=== PATIENT | male | born 2000 | race Two or more races ===

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

== ENCOUNTER 2022-04-05 14:15 | Inpatient (IN) | payer MEDICAID, OTHER ==
[~2022-04-05] VITALS: Ht 175.3 cm; Wt 117.2 kg
[~2022-04-05 14:15] MED LIST changes: +CIPR-173 PO; -INSLANTI; +INSLANTI SC; -INSLISPI; +INSLISPI SC; +METR500T PO; +ONDA-144 PO
[2022-04-05 14:53] LABS: Urine Bacteria NONE SEEN /hpf (None Seen); Urine Blood Negative /uL (Negative); Urine WBC <1 /hpf (0 - 3)
[2022-04-05 15:19] LABS: Basophils # (auto) 0.1 10 ^3/uL (0-0.2); Basophils % (auto) 0.6 % (0.0-2.0); Eosinophils # (auto) 0.4 10 ^3/uL (0-0.8); Eosinophils % (auto) 3.9 % (0.0-7.0); Hematocrit 47.2 % (41.0-53.0); Hemoglobin 15.6 g/dL (13.5-17.5); Lymphocytes # (auto) 2.6 10 ^3/uL (0.4-5.4); Lymphocytes % (auto) 23.1 % (10.0-50.0); Mean Corpuscular Hemoglobin 26.7 pg (28.0-32.0); Mean Corpuscular Hgb Conc. 33.1 g/dL (32.0-36.0); Mean Corpuscular Volume 80.8 fL (80.0-100.0); Monocytes # (auto) 0.9 10 ^3/uL (0-1.3); Monocytes % (auto) 8.3 % (0.0-12.0); Neutrophils # (auto) 7.3 10 ^3/uL (1.6-8.6); Neutrophils % (auto) 64.1 % (37.0-80.0); Red Blood Cells 5.85 10^6/uL (4.5-5.90); Red Cell Distribution Width 12.7 % (11.8-14.3); White Blood Cell 11.4 10^3/uL (4.4-10.8)
[2022-04-05 15:45] LABS: Albumin 3.6 g/dL (3.4-5.0); BUN/Creatinine Ratio 14.3; Calcium 9.2 mg/dL (8.5-10.1); Potassium 4.3 mmol/L (3.5-5.1)
[2022-04-05 15:48] LABS: Bilirubin, Total 0.4 mg/dL (0.2-1.0)
[2022-04-05] MEDS ORDERED: ceFAZolin 1GM/50ML 50 ML IV ONE (16:00)
[2022-04-05] MEDS ORDERED: SODIUM CHLORIDE 0.9% 1,000 ML IV ONE ×2 (16:00)
[2022-04-05] MEDS ORDERED: metroNIDAZOLE 500MG/100ML 100 ML IV ONE (16:00)
[2022-04-05 17:31] LABS: INR 0.93 (0.9-1.15); Partial Thromboplastin Time 27.2 sec (24.6-33.4)
[2022-04-05] MEDS ORDERED: DEXTROSE (50%) 50ML SYRG IV PRN (19:15)
[2022-04-05] MEDS ORDERED: MORPHINE SULFATE INJ 2 MG/ml SYRG IV PRN (19:15)
[2022-04-05] MEDS ORDERED: NITROGLYCERIN 0.4 MG SL TAB SL PRN (19:15)
[2022-04-05] MEDS: SODIUM CHLORIDE 0.9% 1,000 ML IV SCH (19:15)
[2022-04-05] MEDS ORDERED: ONDANSETRON HCL 4 MG/2 ML VIAL IV PRN (19:15)
[2022-04-05 19:42] LABS: Cholesterol 197 mg/dL (< 200)
[2022-04-05 19:45] LABS: HDL Cholesterol 51 mg/dL (40-59); LDL Cholesterol 143 mg/dL (< 100); Triglycerides 272 mg/dL (< 150)
[2022-04-05] MEDS ORDERED: metroNIDAZOLE 500MG/100ML 100 ML IV SCH (22:00)
[2022-04-05 22:30] VITALS: BP 120/69
[2022-04-05 22:32] VITALS: BP 120/69
[2022-04-05] MEDS ORDERED: ATOR20TA50 PO (22:36)
[2022-04-05] MEDS ORDERED: [UNRECOGNIZED DRUG - CODE] PO (22:36)
[2022-04-05] MEDS: MORPHINE SULFATE INJ 2 MG/ml SYRG IV PRN (22:58)
[2022-04-05] MEDS: ACCU-CHEK COMFORT CURVE STRIP VI SCH (23:36)
[2022-04-05] MEDS: InsuLIN REG 1unit/0.01ml Soln (100units/ml) SC SCH (23:36)
[2022-04-06] MEDS: metroNIDAZOLE 500MG/100ML 100 ML IV SCH ×3 (03:12→17:43)
[2022-04-06 05:00] VITALS: BP 115/69
[2022-04-06] MEDS: SODIUM CHLORIDE 0.9% 1,000 ML IV SCH ×2 (05:04→14:41)
[2022-04-06] MEDS: ACCU-CHEK COMFORT CURVE STRIP VI SCH ×3 (05:07→17:38)
[2022-04-06] MEDS: InsuLIN REG 1unit/0.01ml Soln (100units/ml) SC SCH ×3 (05:34→16:06)
[2022-04-06 06:02] LABS: Basophils # (auto) 0.1 10 ^3/uL (0-0.2); Eosinophils # (auto) 0.5 10 ^3/uL (0-0.8); Hemoglobin 13.9 g/dL (13.5-17.5); Lymphocytes # (auto) 2.7 10 ^3/uL (0.4-5.4); Monocytes # (auto) 0.7 10 ^3/uL (0-1.3); Neutrophils # (auto) 6.6 10 ^3/uL (1.6-8.6); Red Cell Distribution Width 12.5 % (11.8-14.3); White Blood Cell 10.6 10^3/uL (4.4-10.8)
[2022-04-06 06:03] LABS: Basophils % (auto) 0.6 % (0.0-2.0); Eosinophils % (auto) 4.6 % (0.0-7.0); Hematocrit 41.8 % (41.0-53.0); Lymphocytes % (auto) 25.8 % (10.0-50.0); Mean Corpuscular Hemoglobin 27.1 pg (28.0-32.0); Mean Corpuscular Hgb Conc. 33.2 g/dL (32.0-36.0); Mean Corpuscular Volume 81.6 fL (80.0-100.0); Monocytes % (auto) 6.8 % (0.0-12.0); Neutrophils % (auto) 62.2 % (37.0-80.0); Red Blood Cells 5.12 10^6/uL (4.5-5.90)
[2022-04-06 06:40] LABS: Albumin 2.9 g/dL (3.4-5.0); BUN/Creatinine Ratio 21.2; Bilirubin, Total 0.8 mg/dL (0.2-1.0); Calcium 8.9 mg/dL (8.5-10.1); Total Protein 6.6 g/dL (6.4-8.2)
[2022-04-06] MEDS ORDERED: InsuLIN REG 1unit/0.01ml Soln (100units/ml) SC ONE ×2 (08:45→09:45)
[2022-04-06] MEDS ORDERED: MEPERIDINE HCL (50 MG/ML) 1 ML VIAL ONE (08:58)
[2022-04-06] MEDS ORDERED: fentaNYL CITRATE 100 MCG/2 ML VL ONE (08:58)
[2022-04-06] MEDS ORDERED: MIDAZOLAM HCL 2MG/2ML 2ml VIAL (1mg/ml) ONE (08:58)
[2022-04-06 09:00] VITALS: BP 108/71
[2022-04-06] MEDS: cefTRIAXone 1GM/50ML D5W 50 ML IV SCH ×2 (09:00→09:52)
[2022-04-06] MEDS ORDERED: InsuLIN REG 1unit/0.01ml Soln (100units/ml) IV ONE (09:45)
[2022-04-06] MEDS ORDERED: SUCCINYLCHOLINE CHLORIDE 20 MG/ML 10ML VIAL IV ONE (09:45)
[2022-04-06] MEDS ORDERED: BUPIVACAINE 0.25% INJ 50ML VIAL ONE (09:49)
[2022-04-06] MEDS ORDERED: PROPOFOL 10 MG/ML 20 ML IV ONE (10:06)
[2022-04-06] MEDS ORDERED: DexAMETHasone SOD PHOS 10MG/1ML VIAL INJ ONE (10:06)
[2022-04-06] MEDS ORDERED: ROCURONIUM 10MG/ML 10ML VIAL IV ONE (10:06)
[2022-04-06] MEDS ORDERED: hydrALAZINE HCL 20 MG/ML VL IV PRN (10:30)
[2022-04-06] MEDS ORDERED: ACCU-CHEK COMFORT CURVE STRIP VI ONE (10:30)
[2022-04-06] MEDS ORDERED: ePHEDrine SULFATE 50 MG/ML AMP IV PRN (10:30)
[2022-04-06] MEDS ORDERED: MIDAZOLAM HCL 2MG/2ML 2ml VIAL (1mg/ml) IV PRN (10:30)
[2022-04-06] MEDS ORDERED: ONDANSETRON HCL 4 MG/2 ML VIAL IV PRN (10:30)
[2022-04-06] MEDS ORDERED: LABETALOL HCL 5 MG/ML 4ML SYRINGE IV PRN (10:30)
[2022-04-06] MEDS ORDERED: MORPHINE SULFATE 4 MG/ML SYR/VIAL IV PRN (10:30)
[2022-04-06] MEDS ORDERED: SUGAMMADEX 200mg/2ml Vial (100MG/ML) IV ONE (11:00)
[2022-04-06] MEDS: HYDROmorphone HCL 2 MG/ML VL/or syr IV PRN ×4 (11:25→11:55)
[2022-04-06] MEDS ORDERED: IPRATROPIUM BROM 0.5 MG/2.5ML INH SOL NEB ONE (11:40)
[2022-04-06 13:00] VITALS: BP 134/77
[2022-04-06] MEDS: MORPHINE SULFATE INJ 2 MG/ml SYRG IV PRN ×3 (13:44→22:40)
[2022-04-06] MEDS: ONDANSETRON HCL 4 MG/2 ML VIAL IV PRN ×2 (13:46→18:37)
[2022-04-06] MEDS: IBUPROFEN 400 MG TAB PO SCH ×2 (16:06→21:37)
[2022-04-06 17:00] VITALS: BP 114/73
[2022-04-06] MEDS ORDERED: IBUPROFEN 600 MG TAB PO SCH (22:00)
[2022-04-06 22:09] VITALS: BP 125/82
[2022-04-07] MEDS: InsuLIN REG 1unit/0.01ml Soln (100units/ml) SC SCH ×5 (00:02→23:25)
[2022-04-07] MEDS: ACCU-CHEK COMFORT CURVE STRIP VI SCH ×5 (00:11→23:54)
[2022-04-07] MEDS: SODIUM CHLORIDE 0.9% 1,000 ML IV SCH ×4 (01:15→22:16)
[2022-04-07] MEDS: MORPHINE SULFATE INJ 2 MG/ml SYRG IV PRN ×5 (02:57→23:26)
[2022-04-07] MEDS: ONDANSETRON HCL 4 MG/2 ML VIAL IV PRN ×4 (02:58→19:45)
[2022-04-07] MEDS: metroNIDAZOLE 500MG/100ML 100 ML IV SCH ×3 (03:03→19:45)
[2022-04-07 04:56] VITALS: BP 138/74
[2022-04-07] MEDS: IBUPROFEN 400 MG TAB PO SCH ×3 (05:32→21:43)
[2022-04-07 08:30] VITALS: BP 145/85
[2022-04-07] MEDS: cefTRIAXone 1GM/50ML D5W 50 ML IV SCH (09:20)
[2022-04-07] MEDS: PANTOPRAZOLE 40 MG/10 ML VIAL INJ IV SCH (10:15)
[2022-04-07 10:20] LABS: Basophils # (auto) 0.1 10 ^3/uL (0-0.2); Hematocrit 47.3 % (41.0-53.0)
[2022-04-07 10:22] LABS: Basophils % (auto) 0.4 % (0.0-2.0); Eosinophils # (auto) 0.1 10 ^3/uL (0-0.8); Eosinophils % (auto) 0.2 % (0.0-7.0); Hemoglobin 14.9 g/dL (13.5-17.5); Lymphocytes # (auto) 2.4 10 ^3/uL (0.4-5.4); Lymphocytes % (auto) 10.4 % (10.0-50.0); Mean Corpuscular Hemoglobin 27.1 pg (28.0-32.0); Mean Corpuscular Hgb Conc. 31.6 g/dL (32.0-36.0); Mean Corpuscular Volume 85.8 fL (80.0-100.0); Monocytes # (auto) 2.1 10 ^3/uL (0-1.3); Neutrophils # (auto) 18.5 10 ^3/uL (1.6-8.6); Red Blood Cells 5.52 10^6/uL (4.5-5.90); Red Cell Distribution Width 13.1 % (11.8-14.3); White Blood Cell 23.2 10^3/uL (4.4-10.8)
[2022-04-07 10:40] LABS: BUN/Creatinine Ratio 8.1; Calcium 9.3 mg/dL (8.5-10.1); Potassium 4.4 mmol/L (3.5-5.1)
[2022-04-07 13:07] VITALS: BP 138/80
[2022-04-07 17:17] VITALS: BP 135/80
[2022-04-07 22:00] VITALS: BP 127/66
[2022-04-08] VITALS (27 sets, daily range): BP systolic 114–158; BP diastolic 64–93
[2022-04-08] MEDS: ONDANSETRON HCL 4 MG/2 ML VIAL IV PRN ×2 (00:09→06:53)
[2022-04-08] MEDS: HYDROcodone-ACET 5/325MG TAB PO PRN ×3 (00:39→22:46)
[2022-04-08] MEDS: metroNIDAZOLE 500MG/100ML 100 ML IV SCH ×3 (02:54→18:12)
[2022-04-08] MEDS: ACCU-CHEK COMFORT CURVE STRIP VI SCH ×11 (05:52→22:32)
[2022-04-08] MEDS: IBUPROFEN 400 MG TAB PO SCH (05:52)
[2022-04-08] MEDS: InsuLIN REG 1unit/0.01ml Soln (100units/ml) SC SCH (05:55)
[2022-04-08] MEDS: SODIUM CHLORIDE 0.9% 1,000 ML IV SCH ×3 (08:50→21:42)
[2022-04-08] MEDS ORDERED: DEXTROSE (50%) 50ML SYRG IV PRN (08:50)
[2022-04-08] MEDS ORDERED: INSULIN LANTUS (GLARGINE) 1 /0.01ml (100units/ml) SC ONE (08:50)
[2022-04-08] MEDS ORDERED: SODIUM BICARBONATE 8.4 % INJ 50ML VIAL IV ONE (08:50)
[2022-04-08] MEDS ORDERED: InsuLIN R (HUMAN) 100 UNITS in SODIUM CHL 0.9% 99 ML IV SCH (08:50)
[2022-04-08] MEDS ORDERED: InsuLIN REG 1unit/0.01ml Soln (100units/ml) IV ONE (08:50)
[2022-04-08] MEDS ORDERED: SODIUM CHLORIDE 0.9% 2,000 ML IV ONE (08:50)
[2022-04-08 09:05] LABS: Eosinophils # (auto) 0 10 ^3/uL (0-0.8); Monocytes # (auto) 1.1 10 ^3/uL (0-1.3); Neutrophils # (auto) 10.3 10 ^3/uL (1.6-8.6)
[2022-04-08 09:07] LABS: Basophils # (auto) 0.2 10 ^3/uL (0-0.2); Basophils % (auto) 1.5 % (0.0-2.0); Hematocrit 43.8 % (41.0-53.0); Hemoglobin 14.1 g/dL (13.5-17.5); Lymphocytes # (auto) 1.2 10 ^3/uL (0.4-5.4); Lymphocytes % (auto) 9.6 % (10.0-50.0); Mean Corpuscular Hemoglobin 26.7 pg (28.0-32.0); Mean Corpuscular Hgb Conc. 32.1 g/dL (32.0-36.0); Mean Corpuscular Volume 83.1 fL (80.0-100.0); Monocytes % (auto) 8.3 % (0.0-12.0); Neutrophils % (auto) 80.6 % (37.0-80.0); Red Blood Cells 5.27 10^6/uL (4.5-5.90); Red Cell Distribution Width 12.9 % (11.8-14.3); White Blood Cell 12.7 10^3/uL (4.4-10.8)
[2022-04-08 09:26] LABS: Albumin 3.7 g/dL (3.4-5.0); Calcium 8.9 mg/dL (8.5-10.1); Potassium 3.9 mmol/L (3.5-5.1)
[2022-04-08 09:29] LABS: BUN/Creatinine Ratio 8.6; Bilirubin, Total 0.5 mg/dL (0.2-1.0); Total Protein 8.3 g/dL (6.4-8.2)
[2022-04-08] MEDS: cefTRIAXone 1GM/50ML D5W 50 ML IV SCH (09:56)
[2022-04-08] MEDS: PROMETHAZINE HCL 25 MG/ML 1ML IV PRN ×2 (09:58→16:47)
[2022-04-08] MEDS: PANTOPRAZOLE 40 MG/10 ML VIAL INJ IV SCH (10:14)
[2022-04-08 11:21] LABS: Urine Bacteria NONE SEEN /hpf (None Seen); Urine Blood Negative /uL (Negative); Urine Specific Gravity 1.021 (1.001-1.035); Urine WBC <1 /hpf (0 - 3)
[2022-04-08] MEDS: POTASSIUM CHL 20MEQ/100ML 100 ML IV SCH ×2 (12:29→21:05)
[2022-04-08] MEDS: SODIUM BICARBONATE 50ML VIAL 150 ML in D5W 5% 1,000 ML IV SCH ×3 (12:32→22:26)
[2022-04-08] MEDS: InsuLIN R (HUMAN) 100 UNITS in SODIUM CHL 0.9% 99 ML IV SCH (17:04)
[2022-04-08] MEDS: ACETAMINOPHEN 650 mg PER 20.3 mL UD PO PRN (17:10)
[2022-04-08 20:56] LABS: BUN/Creatinine Ratio 5.9; Calcium 8.4 mg/dL (8.5-10.1); Potassium 3.2 mmol/L (3.5-5.1)
[2022-04-08] MEDS ORDERED: POTASSIUM CHL 20 Meq TABLET PO SCH (23:00)
[2022-04-09] VITALS (40 sets, daily range): BP systolic 115–146; BP diastolic 58–86
[2022-04-09] LABS: BUN/Creatinine Ratio 6.1
[2022-04-09 00:01] LABS: Calcium 8.5 mg/dL (8.5-10.1)
[2022-04-09] MEDS: ACCU-CHEK COMFORT CURVE STRIP VI SCH ×13 (00:09→20:32)
[2022-04-09] MEDS: POTASSIUM CHL 20MEQ/100ML 100 ML IV SCH ×2 (00:52→05:06)
[2022-04-09] MEDS: ACETAMINOPHEN 650 mg PER 20.3 mL UD PO PRN ×2 (02:01→09:03)
[2022-04-09] MEDS: metroNIDAZOLE 500MG/100ML 100 ML IV SCH ×3 (03:14→22:16)
[2022-04-09 04:21] LABS: Basophils # (auto) 0 10 ^3/uL (0-0.2); Basophils % (auto) 0.3 % (0.0-2.0); Eosinophils # (auto) 0 10 ^3/uL (0-0.8); Eosinophils % (auto) 0.1 % (0.0-7.0); Hematocrit 39.8 % (41.0-53.0); Hemoglobin 13.4 g/dL (13.5-17.5); Lymphocytes % (auto) 10.4 % (10.0-50.0); Mean Corpuscular Hemoglobin 27.1 pg (28.0-32.0); Mean Corpuscular Hgb Conc. 33.6 g/dL (32.0-36.0); Mean Corpuscular Volume 80.5 fL (80.0-100.0); Monocytes # (auto) 1.3 10 ^3/uL (0-1.3); Monocytes % (auto) 14.2 % (0.0-12.0); Neutrophils # (auto) 6.9 10 ^3/uL (1.6-8.6); Red Blood Cells 4.94 10^6/uL (4.5-5.90); Red Cell Distribution Width 12.7 % (11.8-14.3); White Blood Cell 9.2 10^3/uL (4.4-10.8)
[2022-04-09 04:43] LABS: Calcium 8.4 mg/dL (8.5-10.1)
[2022-04-09 04:47] LABS: BUN/Creatinine Ratio 5.2
[2022-04-09 05:00] LABS: Potassium 2.9 mmol/L (3.5-5.1)
[2022-04-09] MEDS ORDERED: POTASSIUM CHL 20MEQ/100ML 100 ML IV ONE (05:03)
[2022-04-09] MEDS: D5W/SOD CHL 0.45% 1,000 ML IV SCH ×2 (05:33→07:15)
[2022-04-09] MEDS: InsuLIN R (HUMAN) 100 UNITS in SODIUM CHL 0.9% 99 ML IV SCH (06:29)
[2022-04-09] MEDS: HYDROcodone-ACET 5/325MG TAB PO PRN (06:42)
[2022-04-09] MEDS: cefTRIAXone 1GM/50ML D5W 50 ML IV SCH (09:02)
[2022-04-09] MEDS: PANTOPRAZOLE 40 MG/10 ML VIAL INJ IV SCH (09:05)
[2022-04-09 09:55] LABS: Calcium 8.9 mg/dL (8.5-10.1)
[2022-04-09 09:56] LABS: BUN/Creatinine Ratio 5.1
[2022-04-09 09:59] LABS: INR 1.03 (0.9-1.15); Partial Thromboplastin Time 24.2 sec (24.6-33.4)
[2022-04-09] MEDS ORDERED: POTASSIUM EFFERVESENT TAB 25 MEQ PO ONE ×3 (10:00→15:30)
[2022-04-09] MEDS ORDERED: INSULIN LANTUS (GLARGINE) 1 /0.01ml (100units/ml) SC SCH (10:00)
[2022-04-09] MEDS ORDERED: POTASSIUM CHL 20 Meq TABLET PO ONE (10:00)
[2022-04-09 10:08] LABS: Potassium 2.7 mmol/L (3.5-5.1)
[2022-04-09] MEDS: POTASSIUM CHLORIDE 40 MEQ in SOD CHL 0.45% 1,000 ML IV SCH ×2 (10:34→19:57)
[2022-04-09] MEDS ORDERED: ACETAMINOPHEN 500 MG TAB PO ONE ×2 (12:30→12:33)
[2022-04-09] MEDS ORDERED: LABETALOL HCL 5 MG/ML 4ML SYRINGE IV ONE (13:30)
[2022-04-09] MEDS ORDERED: LABETALOL HCL 5 MG/ML 4ML SYRINGE IV PRN (14:00)
[2022-04-09] MEDS ORDERED: MAGNESIUM SULFATE 1GM/100ML 100 ML IV ONE (14:00)
[2022-04-09] MEDS: CEFEPIME 1GM/ 50ML 50 ML IV SCH ×2 (14:15→20:50)
[2022-04-09] MEDS ORDERED: VANCOMYCIN PER PHARMACY 0 MG IV SCH (14:45)
[2022-04-09] MEDS ORDERED: SODIUM CHLORIDE 0.9% 500 ML IV ONE (15:00)
[2022-04-09] MEDS ORDERED: SODIUM CHLORIDE 0.9% 1,000 ML IV SCH (15:00)
[2022-04-09 15:06] LABS: BUN/Creatinine Ratio 7.3; Calcium 8.9 mg/dL (8.5-10.1); Potassium 3.1 mmol/L (3.5-5.1)
[2022-04-09] MEDS ORDERED: LIDOCAINE 1% (LOCAL ANESTH.) PF 5ml SDV ID ONE (15:45)
[2022-04-09] MEDS ORDERED: VANCOMYCIN 1GM/250ML 250 ML IV SCH (17:00)
[2022-04-09] MEDS: InsuLIN REG 1unit/0.01ml Soln (100units/ml) SC SCH (20:33)
[2022-04-09] MEDS: SODIUM CHLOR 0.9% PF (SALINE LOCK) 10ML VIAL/SYR IV SCH (20:51)
[2022-04-09] MEDS: INSULIN LANTUS (GLARGINE) 1 /0.01ml (100units/ml) SC SCH (22:17)
[2022-04-09] MEDS: ONDANSETRON HCL 4 MG/2 ML VIAL IV PRN (23:10)
[2022-04-10] VITALS (10 sets, daily range): BP systolic 118–146; BP diastolic 64–80
[2022-04-10 00:39] LABS: BUN/Creatinine Ratio 7.4; Potassium 3.3 mmol/L (3.5-5.1)
[2022-04-10] MEDS: POTASSIUM CHLORIDE 40 MEQ in SOD CHL 0.45% 1,000 ML IV SCH ×2 (01:38→18:58)
[2022-04-10] MEDS: HYDROcodone-ACET 5/325MG TAB PO PRN (03:45)
[2022-04-10 04:20] LABS: Basophils # (auto) 0 10 ^3/uL (0-0.2); Basophils % (auto) 0.6 % (0.0-2.0); Eosinophils # (auto) 0 10 ^3/uL (0-0.8); Eosinophils % (auto) 0.2 % (0.0-7.0); Hematocrit 35.8 % (41.0-53.0); Hemoglobin 12.3 g/dL (13.5-17.5); Lymphocytes # (auto) 1.2 10 ^3/uL (0.4-5.4); Lymphocytes % (auto) 15.7 % (10.0-50.0); Mean Corpuscular Hemoglobin 26.9 pg (28.0-32.0); Mean Corpuscular Hgb Conc. 34.4 g/dL (32.0-36.0); Mean Corpuscular Volume 78.2 fL (80.0-100.0); Monocytes # (auto) 0.8 10 ^3/uL (0-1.3); Neutrophils # (auto) 5.5 10 ^3/uL (1.6-8.6); Neutrophils % (auto) 72.5 % (37.0-80.0); Red Blood Cells 4.58 10^6/uL (4.5-5.90); Red Cell Distribution Width 12.5 % (11.8-14.3); White Blood Cell 7.7 10^3/uL (4.4-10.8)
[2022-04-10 04:26] LABS: Albumin 2.7 g/dL (3.4-5.0); Calcium 8.2 mg/dL (8.5-10.1); Potassium 3.1 mmol/L (3.5-5.1)
[2022-04-10 04:30] LABS: BUN/Creatinine Ratio 6.3; Bilirubin, Total 0.5 mg/dL (0.2-1.0); Total Protein 6.2 g/dL (6.4-8.2)
[2022-04-10] MEDS: ACCU-CHEK COMFORT CURVE STRIP VI SCH ×6 (04:37→19:46)
[2022-04-10] MEDS: InsuLIN REG 1unit/0.01ml Soln (100units/ml) SC SCH ×6 (04:39→19:46)
[2022-04-10] MEDS: CEFEPIME 1GM/ 50ML 50 ML IV SCH ×3 (04:47→23:50)
[2022-04-10] MEDS: ONDANSETRON HCL 4 MG/2 ML VIAL IV PRN ×2 (05:46→11:43)
[2022-04-10] MEDS: metroNIDAZOLE 500MG/100ML 100 ML IV SCH ×3 (05:49→21:12)
[2022-04-10 08:51] LABS: BUN/Creatinine Ratio 8.2; Calcium 8.2 mg/dL (8.5-10.1)
[2022-04-10 08:58] LABS: Potassium 2.8 mmol/L (3.5-5.1)
[2022-04-10] MEDS ORDERED: POTASSIUM EFFERVESENT TAB 25 MEQ PO ONE ×2 (09:15→11:15)
[2022-04-10] MEDS: SODIUM CHLOR 0.9% PF (SALINE LOCK) 10ML VIAL/SYR IV SCH (09:22)
[2022-04-10] MEDS: PANTOPRAZOLE 40 MG/10 ML VIAL INJ IV SCH (09:22)
[2022-04-10] MEDS: PROMETHAZINE HCL 25 MG/ML 1ML IV PRN (16:00)
[2022-04-10 17:27] LABS: BUN/Creatinine Ratio 13.3; Potassium 3.3 mmol/L (3.5-5.1)
[2022-04-10 17:28] LABS: Calcium 8.1 mg/dL (8.5-10.1)
[2022-04-10] MEDS: INSULIN LANTUS (GLARGINE) 1 /0.01ml (100units/ml) SC SCH (18:00)
[2022-04-10 19:41] LABS: BUN/Creatinine Ratio 11.1; Calcium 8.4 mg/dL (8.5-10.1); Potassium 3.3 mmol/L (3.5-5.1)
[2022-04-10] MEDS ORDERED: InsuLIN REG 1unit/0.01ml Soln (100units/ml) IV ONE (21:45)
[2022-04-11] MEDS: HYDROcodone-ACET 5/325MG TAB PO PRN ×2 (00:12→10:05)
[2022-04-11] MEDS: ACCU-CHEK COMFORT CURVE STRIP VI SCH ×7 (00:57→23:43)
[2022-04-11] MEDS: SODIUM CHLOR 0.9% PF (SALINE LOCK) 10ML VIAL/SYR IV SCH ×3 (00:57→22:21)
[2022-04-11] MEDS: InsuLIN REG 1unit/0.01ml Soln (100units/ml) SC SCH ×7 (00:58→23:43)
[2022-04-11 05:09] VITALS: BP 127/78
[2022-04-11] MEDS: metroNIDAZOLE 500MG/100ML 100 ML IV SCH (06:56)
[2022-04-11] MEDS: CEFEPIME 1GM/ 50ML 50 ML IV SCH ×3 (07:11→22:21)
[2022-04-11] MEDS: INSULIN LANTUS (GLARGINE) 1 /0.01ml (100units/ml) SC SCH ×2 (07:23→18:05)
[2022-04-11] MEDS: POTASSIUM CHLORIDE 40 MEQ in SOD CHL 0.45% 1,000 ML IV SCH ×3 (07:26→22:57)
[2022-04-11 08:29] LABS: Basophils # (auto) 0 10 ^3/uL (0-0.2); Basophils % (auto) 0.5 % (0.0-2.0); Eosinophils # (auto) 0.1 10 ^3/uL (0-0.8); Eosinophils % (auto) 1.5 % (0.0-7.0); Hematocrit 37.6 % (41.0-53.0); Hemoglobin 12.5 g/dL (13.5-17.5); Lymphocytes # (auto) 1.8 10 ^3/uL (0.4-5.4); Lymphocytes % (auto) 21.5 % (10.0-50.0); Mean Corpuscular Hemoglobin 26.7 pg (28.0-32.0); Mean Corpuscular Hgb Conc. 33.3 g/dL (32.0-36.0); Mean Corpuscular Volume 80.3 fL (80.0-100.0); Monocytes # (auto) 1.2 10 ^3/uL (0-1.3); Monocytes % (auto) 14.2 % (0.0-12.0); Neutrophils # (auto) 5.1 10 ^3/uL (1.6-8.6); Neutrophils % (auto) 62.3 % (37.0-80.0); Nucleated Red Blood Cells % 0.1 %; Red Blood Cells 4.69 10^6/uL (4.5-5.90); Red Cell Distribution Width 12.4 % (11.8-14.3); White Blood Cell 8.2 10^3/uL (4.4-10.8)
[2022-04-11 08:47] LABS: BUN/Creatinine Ratio 9.5; Calcium 8.4 mg/dL (8.5-10.1); Potassium 3.3 mmol/L (3.5-5.1)
[2022-04-11 09:00] VITALS: BP 125/78
[2022-04-11] MEDS: PANTOPRAZOLE 40 MG/10 ML VIAL INJ IV SCH (10:04)
[2022-04-11] MEDS ORDERED: POTASSIUM EFFERVESENT TAB 25 MEQ PO ONE ×2 (10:45)
[2022-04-11] MEDS ORDERED: METR500T PO (12:31)
[2022-04-11] MEDS ORDERED: INSLANTI SC (12:31)
[2022-04-11 13:00] VITALS: BP 131/86
[2022-04-11] MEDS: metroNIDAZOLE 500 MG TAB PO SCH ×2 (14:14→22:21)
[2022-04-11 16:27] VITALS: BP 134/80
[2022-04-11 22:00] VITALS: BP 121/77
[2022-04-12 05:00] VITALS: BP 130/76
[2022-04-12] MEDS: ACCU-CHEK COMFORT CURVE STRIP VI SCH ×4 (05:18→16:57)
[2022-04-12] MEDS: InsuLIN REG 1unit/0.01ml Soln (100units/ml) SC SCH ×5 (05:52→16:57)
[2022-04-12] MEDS: metroNIDAZOLE 500 MG TAB PO SCH ×2 (05:57→14:57)
[2022-04-12] MEDS: CEFEPIME 1GM/ 50ML 50 ML IV SCH ×2 (05:57→14:58)
[2022-04-12] MEDS: INSULIN LANTUS (GLARGINE) 1 /0.01ml (100units/ml) SC SCH (05:59)
[2022-04-12] MEDS: PANTOPRAZOLE 40 MG/10 ML VIAL INJ IV SCH (08:30)
[2022-04-12 09:00] VITALS: BP 126/71
[2022-04-12 09:30] LABS: BUN/Creatinine Ratio 12.5; Calcium 8.9 mg/dL (8.5-10.1); Potassium 3.9 mmol/L (3.5-5.1)
[2022-04-12] MEDS: SODIUM CHLOR 0.9% PF (SALINE LOCK) 10ML VIAL/SYR IV SCH (10:00)
[2022-04-12] MEDS: POTASSIUM CHLORIDE 40 MEQ in SOD CHL 0.45% 1,000 ML IV SCH ×2 (11:49→12:15)
[2022-04-12 13:00] VITALS: BP 115/76
[2022-04-12] MEDS ORDERED: InsuLIN REG 1unit/0.01ml Soln (100units/ml) IV ONE (13:15)
[2022-04-12 17:00] VITALS: BP 122/78
== END 2022-04-12 17:30 | disposition home health service (06) | DRG 710 ==
LOC: ER 14:15 → OVERFLOW 19:06 → WEST WING 22:00 → ICU WEST 04-08 09:35 → TELE-CENTR 04-10 15:21
PROVIDERS: ADMIT Registered Nurse; ATTEND Internal Medicine Nephrology
PROC: 0DTJ4ZZ Resection of Appendix, Percutaneous Endoscopic Approach (ICD-10-PCS; principal; 2022-04-06 09:55)
DX: A41.9 Sepsis, unspecified organism (principal); E10.10 Type 1 diabetes mellitus with ketoacidosis without coma; K56.0 Paralytic ileus; K35.80 Unspecified acute appendicitis; E66.01 Morbid (severe) obesity due to excess calories; J45.909 Unspecified asthma, uncomplicated; E10.65 Type 1 diabetes mellitus with hyperglycemia; Z20.822 Contact with and (suspected) exposure to COVID-19; E78.5 Hyperlipidemia, unspecified; Z82.49 Family history of ischemic heart disease and other diseases of the circulatory system; Z68.37 Body mass index [BMI] 37.0-37.9, adult
CPT/HCPCS: 36415; 36569; 71045; 74176; 74177; 76705; 80048; 80053; 80061; 81001; 82010; 82962; 83036; 83605; 83735; 84132; 84443; 85025; 85610; 85730; 86850; 86900; 86901; 87040; 87081; 87086; 93005; 93306; 94640; 96361; 96365; 96366; 96368; C9113; G0378; J0330; J0690; J0696; J1100; J1815; J2250; J2405; J2704; J3480; J3490

== ENCOUNTER 2022-11-23 19:47 | Inpatient (IN) | payer OTHER, MEDICAID ==
[~2022-11-23] VITALS: Ht 175.3 cm; Wt 115.7 kg
[~2022-11-23 19:47] MED LIST changes: +ATOR20TA50 PO; -CIPR-173 PO; -INSLISPI SC; -ONDA-144 PO
[2022-11-23 20:23] LABS: Basophils # (auto) 0 10 ^3/uL (0-0.2); Basophils % (auto) 0.2 % (0.0-2.0); Eosinophils # (auto) 0.2 10 ^3/uL (0-0.8); Hematocrit 44.4 % (41.0-53.0); Hemoglobin 15.4 g/dL (13.5-17.5); Lymphocytes % (auto) 5.2 % (10.0-50.0); Mean Corpuscular Hemoglobin 27.9 pg (28.0-32.0); Mean Corpuscular Hgb Conc. 34.6 g/dL (32.0-36.0); Mean Corpuscular Volume 80.8 fL (80.0-100.0); Monocytes # (auto) 1.1 10 ^3/uL (0-1.3); Monocytes % (auto) 5.9 % (0.0-12.0); Neutrophils # (auto) 16.6 10 ^3/uL (1.6-8.6); Neutrophils % (auto) 87.7 % (37.0-80.0); Nucleated Red Blood Cells % 0.1 %; Red Cell Distribution Width 12.7 % (11.8-14.3); White Blood Cell 18.9 10^3/uL (4.4-10.8)
[2022-11-23 20:45] LABS: Albumin 3.2 g/dL (3.4-5.0); Calcium 9.2 mg/dL (8.5-10.1); Magnesium 2.1 mg/dL (1.6-2.6)
[2022-11-23] MEDS ORDERED: methylPREDNISolone SOD SUCC 125 MG/2 ML VL IV ONE (20:45)
[2022-11-23] MEDS ORDERED: SODIUM CHLORIDE 0.9% 1,000 ML IV ONE (20:45)
[2022-11-23 20:48] LABS: BUN/Creatinine Ratio 6.9 (10.0-20.0); Bilirubin, Total 0.6 mg/dL (0.2-1.0); Total Protein 7.6 g/dL (6.4-8.2)
[2022-11-23] MEDS: MAGNESIUM SULFATE 1GM/100ML 100 ML IV SCH ×2 (20:52→23:21)
[2022-11-23 22:17] LABS: Urine Bacteria NONE SEEN /hpf (None Seen); Urine Blood Negative /uL (Negative); Urine Specific Gravity 1.043 (1.001-1.035); Urine WBC <1 /hpf (0 - 3)
[2022-11-23] MEDS ORDERED: ALBUTEROL SULF 2.5 MG/0.5ML(0.5%) NEB SOLN NEB SCH (22:21)
[2022-11-23] MEDS ORDERED: IPRATROPIUM BROM 0.5 MG/2.5ML INH SOL NEB SCH (22:21)
[2022-11-24] MEDS ORDERED: IPRATROPIUM BROM 0.5 MG/2.5ML INH SOL NEB PRN
[2022-11-24] MEDS ORDERED: MORPHINE SULFATE INJ 2 MG/ml SYRG IV PRN (00:45)
[2022-11-24] MEDS ORDERED: NITROGLYCERIN 0.4 MG SL TAB SL PRN (00:45)
[2022-11-24] MEDS ORDERED: ACETAMINOPHEN 325 MG TAB PO PRN (00:45)
[2022-11-24] MEDS ORDERED: HYDROcodone-ACET 5/325MG TAB PO PRN (00:45)
[2022-11-24] MEDS ORDERED: ONDANSETRON HCL 4 MG/2 ML VIAL IV PRN (00:45)
[2022-11-24] MEDS ORDERED: DOCUSATE SOD 100 MG CAP PO PRN (00:45)
[2022-11-24] MEDS ORDERED: ALBUTEROL SULF 2.5 MG/0.5ML(0.5%) NEB SOLN NEB PRN ×2 (00:45)
[2022-11-24] MEDS ORDERED: DEXTROSE (50%) 50ML SYRG IV PRN ×3 (00:45→14:45)
[2022-11-24] MEDS: ACCU-CHEK COMFORT CURVE STRIP VI SCH ×6 (01:06→21:42)
[2022-11-24 01:11] VITALS: BP 125/69
[2022-11-24] MEDS: SODIUM CHLORIDE 0.9% 1,000 ML IV SCH ×2 (02:14→22:02)
[2022-11-24] MEDS: InsuLIN REG 1unit/0.01ml Soln (100units/ml) SC SCH ×2 (04:41→08:43)
[2022-11-24] MEDS: methylPREDNISolone SOD SUCC 40 MG/ML VL IV SCH ×3 (06:09→22:02)
[2022-11-24 06:39] LABS: Potassium 4.4 mmol/L (3.5-5.1)
[2022-11-24 06:55] LABS: Albumin 3.2 g/dL (3.4-5.0); BUN/Creatinine Ratio 14.3 (10.0-20.0); Bilirubin, Total 0.6 mg/dL (0.2-1.0); Calcium 9.2 mg/dL (8.5-10.1); Total Protein 7.8 g/dL (6.4-8.2)
[2022-11-24 07:09] LABS: Basophils # (auto) 0 10 ^3/uL (0-0.2); Basophils % (auto) 0.2 % (0.0-2.0); Eosinophils # (auto) 0 10 ^3/uL (0-0.8); Hematocrit 45.1 % (41.0-53.0); Hemoglobin 15.4 g/dL (13.5-17.5); Lymphocytes # (auto) 0.6 10 ^3/uL (0.4-5.4); Lymphocytes % (auto) 4.2 % (10.0-50.0); Mean Corpuscular Hemoglobin 28.1 pg (28.0-32.0); Mean Corpuscular Hgb Conc. 34.2 g/dL (32.0-36.0); Mean Corpuscular Volume 82.2 fL (80.0-100.0); Monocytes # (auto) 0.1 10 ^3/uL (0-1.3); Monocytes % (auto) 0.8 % (0.0-12.0); Neutrophils # (auto) 14.5 10 ^3/uL (1.6-8.6); Neutrophils % (auto) 94.8 % (37.0-80.0); Red Blood Cells 5.48 10^6/uL (4.5-5.90); White Blood Cell 15.3 10^3/uL (4.4-10.8)
[2022-11-24] MEDS ORDERED: InsuLIN REG 1unit/0.01ml Soln (100units/ml) SC SCH ×2 (17:00→22:00)
[2022-11-24] MEDS: FAMOTIDINE (10MG/ML) 2ML VL IV SCH ×2 (20:35→22:02)
[2022-11-24] MEDS ORDERED: INSULIN LANTUS (GLARGINE) 1 /0.01ml (100units/ml) SC SCH (22:00)
[2022-11-25 00:52] LABS: Albumin 3.4 g/dL (3.4-5.0); Calcium 9.9 mg/dL (8.5-10.1); Potassium 4.7 mmol/L (3.5-5.1)
[2022-11-25 00:55] LABS: Bilirubin, Total 0.6 mg/dL (0.2-1.0); Total Protein 8.4 g/dL (6.4-8.2)
[2022-11-25 01:03] LABS: BUN/Creatinine Ratio 26.7 (10.0-20.0)
[2022-11-25] MEDS ORDERED: DEXTROSE (50%) 50ML SYRG IV PRN ×3 (01:15→23:30)
[2022-11-25] MEDS ORDERED: INSULIN LANTUS (GLARGINE) 1 /0.01ml (100units/ml) SC ONE ×2 (01:15→17:30)
[2022-11-25] MEDS: ACCU-CHEK COMFORT CURVE STRIP VI SCH ×12 (03:21→23:59)
[2022-11-25] MEDS ORDERED: InsuLIN REG 1unit/0.01ml Soln (100units/ml) ONE (03:29)
[2022-11-25] MEDS: InsuLIN R (HUMAN) 100 UNITS in SODIUM CHL 0.9% 99 ML IV SCH ×3 (03:30→06:42)
[2022-11-25] MEDS ORDERED: ACCU-CHEK COMFORT CURVE STRIP VI SCH ×2 (04:30→22:00)
[2022-11-25 05:50] LABS: Basophils # (auto) 0.2 10 ^3/uL (0-0.2); Basophils % (auto) 0.9 % (0.0-2.0); Eosinophils # (auto) 0 10 ^3/uL (0-0.8); Hematocrit 44.4 % (41.0-53.0); Hemoglobin 14.8 g/dL (13.5-17.5); Lymphocytes % (auto) 5.5 % (10.0-50.0); Mean Corpuscular Hemoglobin 27.8 pg (28.0-32.0); Mean Corpuscular Hgb Conc. 33.4 g/dL (32.0-36.0); Mean Corpuscular Volume 83.2 fL (80.0-100.0); Monocytes # (auto) 0.7 10 ^3/uL (0-1.3); Neutrophils % (auto) 89.6 % (37.0-80.0); Nucleated Red Blood Cells % 0.1 %; Red Blood Cells 5.34 10^6/uL (4.5-5.90); Red Cell Distribution Width 13.1 % (11.8-14.3); White Blood Cell 17.9 10^3/uL (4.4-10.8)
[2022-11-25 06:09] LABS: Potassium 3.9 mmol/L (3.5-5.1)
[2022-11-25 06:23] LABS: Albumin 3.2 g/dL (3.4-5.0); BUN/Creatinine Ratio 24.7 (10.0-20.0); Bilirubin, Total 0.5 mg/dL (0.2-1.0); Calcium 9.2 mg/dL (8.5-10.1); Total Protein 7.9 g/dL (6.4-8.2)
[2022-11-25] MEDS: methylPREDNISolone SOD SUCC 40 MG/ML VL IV SCH ×3 (07:08→22:59)
[2022-11-25] MEDS: cefTRIAXone 1GM/50ML D5W 50 ML IV SCH (09:15)
[2022-11-25] MEDS: SODIUM CHLORIDE 0.9% 1,000 ML IV SCH ×3 (09:34→22:59)
[2022-11-25] MEDS: FAMOTIDINE (10MG/ML) 2ML VL IV SCH ×2 (10:26→22:59)
[2022-11-25] MEDS ORDERED: SODIUM CHLORIDE 0.9% 1,000 ML IV SCH (11:15)
[2022-11-25 13:31] LABS: BUN/Creatinine Ratio 26.4 (10.0-20.0); Calcium 9.2 mg/dL (8.5-10.1); Potassium 4.2 mmol/L (3.5-5.1)
[2022-11-25 16:31] LABS: Albumin 2.9 g/dL (3.4-5.0); Calcium 9.1 mg/dL (8.5-10.1); Potassium 4.3 mmol/L (3.5-5.1)
[2022-11-25 16:34] LABS: BUN/Creatinine Ratio 24.7 (10.0-20.0); Bilirubin, Total 0.5 mg/dL (0.2-1.0); Total Protein 7.7 g/dL (6.4-8.2)
[2022-11-25] MEDS ORDERED: INSULIN LANTUS (GLARGINE) 1 /0.01ml (100units/ml) SC SCH (22:00)
[2022-11-25] MEDS ORDERED: InsuLIN REG 1unit/0.01ml Soln (100units/ml) SC SCH (22:00)
[2022-11-25 22:21] VITALS: BP 129/79
[2022-11-26] MEDS: InsuLIN REG 1unit/0.01ml Soln (100units/ml) SC SCH ×4 (00:03→12:10)
[2022-11-26] MEDS ORDERED: ALBUAER3 IN (02:53)
[2022-11-26] MEDS ORDERED: OMEG1CAP51 PO (02:53)
[2022-11-26] MEDS ORDERED: ERGO400T PO (02:53)
[2022-11-26] MEDS: ACCU-CHEK COMFORT CURVE STRIP VI SCH ×3 (04:01→12:13)
[2022-11-26] MEDS ORDERED: INSU1INJ19 SC (04:14)
[2022-11-26 05:00] VITALS: BP 127/67
[2022-11-26] MEDS: SODIUM CHLORIDE 0.9% 1,000 ML IV SCH ×4 (05:21→16:46)
[2022-11-26] MEDS: methylPREDNISolone SOD SUCC 40 MG/ML VL IV SCH ×2 (05:21→13:21)
[2022-11-26 06:21] LABS: BUN/Creatinine Ratio 25.7 (10.0-20.0); Calcium 9.6 mg/dL (8.5-10.1); Potassium 3.6 mmol/L (3.5-5.1)
[2022-11-26] MEDS ORDERED: InsuLIN REG 1unit/0.01ml Soln (100units/ml) SC SCH ×2 (07:00→16:00)
[2022-11-26 08:40] VITALS: BP 107/59
[2022-11-26] MEDS: cefTRIAXone 1GM/50ML D5W 50 ML IV SCH (08:57)
[2022-11-26] MEDS: FAMOTIDINE (10MG/ML) 2ML VL IV SCH (08:58)
[2022-11-26] MEDS ORDERED: INSULIN LANTUS (GLARGINE) 1 /0.01ml (100units/ml) SC SCH ×2 (10:00→22:00)
[2022-11-26 12:32] VITALS: BP 128/69
[2022-11-26] MEDS ORDERED: DEXTROSE (50%) 50ML SYRG IV PRN (15:30)
[2022-11-26] MEDS ORDERED: MONT10TA23 PO (15:34)
[2022-11-26] MEDS ORDERED: ALBU108A5 IN (15:34)
[2022-11-26] MEDS ORDERED: ACCU-CHEK COMFORT CURVE STRIP VI SCH (16:00)
[2022-11-26 16:40] VITALS: BP 136/84
== END 2022-11-26 17:12 | disposition home or self-care (01) | DRG 141 ==
LOC: EDBD 19:47 → ER 19:47 → TELE 11-24 00:44 → TELE-WESTW 11-25 22:12
PROVIDERS: ADMIT Nurse Practitioner Family; ATTEND Hospitalist
DX: J45.901 Unspecified asthma with (acute) exacerbation (principal); J96.01 Acute respiratory failure with hypoxia; E10.10 Type 1 diabetes mellitus with ketoacidosis without coma; D72.829 Elevated white blood cell count, unspecified; E66.01 Morbid (severe) obesity due to excess calories; Z20.822 Contact with and (suspected) exposure to COVID-19; I10 Essential (primary) hypertension; Z79.4 Long term (current) use of insulin; Z81.8 Family history of other mental and behavioral disorders; Z68.31 Body mass index [BMI] 31.0-31.9, adult
CPT/HCPCS: 36415; 36600; 71045; 80048; 80053; 81001; 82010; 82805; 82962; 83036; 83735; 84484; 85025; 85379; 87426; 87804; 93005; 94640; G0378; J0696; J1815; J3490

== ENCOUNTER 2023-07-19 16:09 | Emergency (ER) | payer MEDICAID ==
[~2023-07-19] VITALS: Ht 180.3 cm; Wt 118.4 kg
[~2023-07-19 16:09] MED LIST changes: +ALBU108A5 IN; +ALBUAER3 IN; +ERGO400T PO; +INSU1INJ19 SC; -METR500T PO; +MONT10TA23 PO; +OMEG1CAP51 PO
[2023-07-19 16:49] LABS: Basophils # (auto) 0.1 10 ^3/uL (0-0.2); Basophils % (auto) 0.7 % (0.0-2.0); Eosinophils # (auto) 0.7 10 ^3/uL (0-0.8); Eosinophils % (auto) 6.5 % (0.0-7.0); Hematocrit 43.2 % (41.0-53.0); Hemoglobin 14.7 g/dL (13.5-17.5); Lymphocytes # (auto) 2.2 10 ^3/uL (0.4-5.4); Lymphocytes % (auto) 21.4 % (10.0-50.0); Mean Corpuscular Hemoglobin 27.8 pg (28.0-32.0); Mean Corpuscular Volume 81.6 fL (80.0-100.0); Monocytes # (auto) 0.8 10 ^3/uL (0-1.3); Monocytes % (auto) 7.9 % (0.0-12.0); Neutrophils # (auto) 6.6 10 ^3/uL (1.6-8.6); Neutrophils % (auto) 63.5 % (37.0-80.0); Nucleated Red Blood Cells % 0.1 %; Red Blood Cells 5.29 10^6/uL (4.5-5.90); Red Cell Distribution Width 13.3 % (11.8-14.3); White Blood Cell 10.4 10^3/uL (4.4-10.8)
[2023-07-19 16:52] LABS: Urine Bacteria NONE SEEN /hpf (None Seen); Urine Blood Negative /uL (Negative); Urine Clarity Clear (Clear); Urine Color Yellow (Yellow); Urine Mucus FEW (None Seen); Urine Protein, UAD 1+ (Negative); Urine Specific Gravity 1.028 (1.001-1.035); Urine Urobilinogen Normal (Negative); Urine WBC 3 /hpf (0 - 3)
[2023-07-19 17:10] LABS: Alanine Aminotransferase 12 U/L (7-40); Albumin 4.4 g/dL (3.2-4.8); Alkaline Phosphatase 139 U/L (46-116); Anion Gap 8 (5-15); Aspartate Aminotransferase 15 U/L (13-40); BUN/Creatinine Ratio 12.2 (10.0-20.0); Blood Urea Nitrogen 9 mg/dL (9-23); Carbon Dioxide 25 mmol/L (20-30); Chloride 105 mmol/L (98-107); Glucose 103 mg/dL (74-106); Potassium 3.4 mmol/L (3.5-5.1); Sodium 138 mmol/L (136-145)
[2023-07-19 17:11] LABS: Bilirubin, Total 0.6 mg/dL (0.2-1.0); Total Protein 6.8 g/dL (5.7-8.2)
[2023-07-19] MEDS ORDERED: SODIUM CHLORIDE 0.9% 1,000 ML IV ONE (17:15)
[2023-07-19 20:26] VITALS: BP 130/78; TEMP 98.3; O2SAT 97
[2023-07-19 20:40] VITALS: PULSE 96; RESP 18
== END 2023-07-19 20:44 | disposition home or self-care (01) ==
LOC: ER 16:09
DX: E11.65 Type 2 diabetes mellitus with hyperglycemia (principal); J45.909 Unspecified asthma, uncomplicated; Z79.4 Long term (current) use of insulin; Z79.899 Other long term (current) drug therapy
CPT/HCPCS: 36415; 80053; 81001; 82010; 85025